=== PATIENT | male | born 1995 | race Asian ===

== ENCOUNTER 2020-06-12 13:19 | Emergency (ER) | payer SELFPAY ==
[2020-06-12] MEDS ORDERED: ONDANSETRON 4 MG/2 ML INJ IV ONE (14:16)
[2020-06-12] MEDS ORDERED: HYDROmorphone 1 MG/1 ML INJ IV ONE (14:16)
[2020-06-12] MEDS ORDERED: SODIUM CHLORIDE 0.9% 1000 ML 1,000 ML IV ONE (14:16)
--- NOTE | 2020-06-12 14:17 | Emergency Department Report ---
ED Abdominal Pain HPI - General Chief Complaint: Abdominal Pain Stated Complaint: ABDOMINAL PAIN PUI?: No Time Seen by Provider: 06/12/20 14:12 Source: patient, EMS ( EMS documentation not available at time of chart dicta tion ), RN notes reviewed Mode of arrival: Stretcher Limitations: No Limitations - History of Present Illness Initial Comments: The patient was evaluated in the emergency department for symptoms described in the history of present illness. He/she was evaluated in the context of the global COVID-19 pandemic, which necessitated consideration that the patient might be at risk for infection with the virus that causes COVID-19. Institutional protocols and algorithms that pertain to the evaluation of patient s at risk for COVID-19 are in a state of rapid change based on information released by regulatory bodies including the CDC and federal and state organizations. These policies and algorithms were followed during the patient's care in the emergency department. Please note that these policies, procedures and recommendations changed on a rapid basis. During the entire history and physical examination, I am chaperoned/escorted by nurse CARMEN,JANUARY Patient is a 24-year-old gentleman, who is not known to myself previously, who recreationally consumes cannabis, denies past medical history otherwise, surgical history otherwise, presenting to the ER with crampy suprapubic and bilateral lower quadrant abdominal pain, present since yesterday. It does not radiate anywhere. Positive nausea and vomiting. No testicular pain, or urinary symptoms. Positive relief with exposure to hot water, hot bath and hot shower. He states he has had pain like this in the past, but not this severe. No additional injuries. No additional complaints. The pain does not radiate anywhere. It is constant. It increases with palpation. It decreases with rest and position. MD Complaint: abdominal pain -: Gradual Location: LLQ, RLQ, suprapubic Radiation: none Migration to: periumbilical Severity: moderate Quality: cramping, aching Consistency: constant Improves With: rest Worsens With: movement Associated Symptoms: nausea, vomiting - Related Data Previous Rx's Medication Instructions Recorded Last Taken Type Acetaminophen [Non-Aspirin Extra 500 mg PO Q6HR PRN #30 tablet 06/12/20 Unknown Rx Strength] Famotidine [Pepcid] 20 mg PO BID #60 tablet 06/12/20 Unknown Rx Kassidy Root [Kassidy] 250 mg PO QID PRN #30 capsule 06/12/20 Unknown Rx Metoclopramide [Reglan] 10 mg PO QID PRN #30 tablet 06/12/20 Unknown Rx Allergies Allergy/AdvReac Type Severity Reaction Status Date / Time No Known Allergies Allergy Unverified 06/12/20 14:27 ED Review of Systems ROS: Stated complaint: ABDOMINAL PAIN Other details as noted in HPI Constitutional: denies: fever Eyes: denies: eye discharge ENT: denies: epistaxis Respiratory: denies: wheezing Cardiovascular: denies: chest pain, syncope Gastrointestinal: abdominal pain, nausea, vomiting. denies: diarrhea, constipation, hematemesis, hematochezia Genitourinary: denies: urgency, dysuria, frequency, testicular pain Musculoskeletal: denies: back pain Neurological: denies: weakness Psychiatric: anxiety Hematological/Lymphatic: denies: easy bleeding ED Past Medical Hx - Past Medical History Previous Medical History?: No - Surgical History Past Surgical History?: No - Social History Smoking Status: Current Every Day Smoker Substance Use Type: None - Medications Home Medications: Home Medications Medication Instructions Recorded Confirmed Last Taken Type Acetaminophen [Non-Aspirin Extra 500 mg PO Q6HR PRN #30 tablet 06/12/20 Unknown Rx Strength] Famotidine [Pepcid] 20 mg PO BID #60 tablet 06/12/20 Unknown Rx Kassidy Root [Kassidy] 250 mg PO QID PRN #30 capsule 06/12/20 Unknown Rx Metoclopramide [Reglan] 10 mg PO QID PRN #30 tablet 06/12/20 Unknown Rx ED Physical Exam - General Limitations: No Limitations General appearance: alert, anxious, in distress - Head Head exam: Present: atraumatic, normocephalic - Eye Eye exam: Present: normal appearance, EOMI. Absent: nystagmus - ENT ENT exam: Present: normal exam, normal orophraynx, mucous membranes moist, normal external ear exam - Neck Neck exam: Present: normal inspection, full ROM. Absent: tenderness, meningismus - Respiratory Respiratory exam: Present: normal lung sounds bilaterally. Absent: respiratory distress - Cardiovascular Cardiovascular Exam: Present: normal rhythm, tachycardia, normal heart sounds. Absent: systolic murmur, diastolic murmur, rubs, gallop - GI/Abdominal GI/Abdominal exam: Present: soft, tenderness, normal bowel sounds, other (Mild bilateral lower abdominal tenderness, without rebound, guarding or peritoneal sign). Absent: distended, guarding, rebound, rigid, pulsatile mass - Rectal Rectal exam: Present: deferred - exam: Present: normal inspection, other (There is normal testicular lie. There is normal cremasteric reflex. There is no testicular tenderness. There is no testicular swelling. Chaperoned by nurse CARMEN,JANUARY). Absent: testicular tenderness External exam: Present: normal external exam - Extremities Exam Extremities exam: Present: normal inspection, full ROM, other (2+ pulses noted in the bilateral upper and lower extremities. There is no palpable cord. negative Homans sign. Muscular compartments are soft. The pelvis is stable.). Absent: pedal edema, calf tenderness - Back Exam Back exam: Present: normal inspection. Absent: tenderness, CVA tenderness (R), CVA tenderness (L), paraspinal tenderness, vertebral tenderness - Neurological Exam Neurological exam: Present: alert, other (No facial droop. Tongue midline. Extraocular movements intact bilaterally. Facial sensation intact to light touch in V1, V2, V3 distribution bilaterally. 5 and a 5 strength in 4 extremities. Sensation intact to light touch in 4 extremities.) - Psychiatric Psychiatric exam: Present: anxious - Skin Skin exam: Present: warm, dry, intact, normal color. Absent: rash ED Course Vital Signs 06/12/20 06/12/20 06/12/20 14:00 14:25 14:48 Temperature 98.8 F Pulse Rate 107 H 83 Respiratory 18 18 19 Rate Blood Pressure 143/93 Blood Pressure 147/96 [Left] O2 Sat by Pulse 100 100 98 Oximetry 06/12/20 06/12/20 06/12/20 15:00 15:15 15:30 Temperature Pulse Rate 81 81 83 Respiratory 13 14 21 Rate Blood Pressure 147/96 126/81 126/81 Blood Pressure [Left] O2 Sat by Pulse 93 96 99 Oximetry 06/12/20 06/12/20 06/12/20 15:45 16:00 16:15 Temperature Pulse Rate 82 82 87 Respiratory 18 16 13 Rate Blood Pressure 121/84 112/78 116/88 Blood Pressure [Left] O2 Sat by Pulse 94 95 98 Oximetry 06/12/20 06/12/20 16:30 16:47 Temperature Pulse Rate 98 H Respiratory 13 Rate Blood Pressure 132/99 132/99 Blood Pressure [Left] O2 Sat by Pulse 98 100 Oximetry - Reevaluation(s) Reevaluation #1: 06/12/20 15:02 Differential diagnosis, including but not limited to: Appendicitis, colitis, diverticulitis, renal colic, cannabinoid hyperemesis syndrome Assessment and plan: 24-year-old gentleman with acute lower abdominal pain, states he has had this pain in the past, but not this severe or intense. It also improves with exposure to hot bath and hot shower. We will treat his pain aggressively, obtain appropriate laboratory studies, urinalysis, obtain CT scan of the abdomen pelvis, and reassess. The patient is clinically sober at this time. Discussed plan of care with the patient, who verbalized understanding, and who is amenable to this plan of care. Reevaluation #2: 06/12/20 17:34 Patient reassessed multiple times. Belly soft on repeat exam. He appears to be much more comfortable. No active vomiting. CT scan negative for acute pathology. Laboratory studies reviewed and appreciated. Leukocytosis is likely a stress reaction. Decreased CO2/anion gap likely secondary to nausea and vomiting, likely leading to dehydration, and bicarbonate losses from GI nausea/vomiting. I highly suspect cannabinoid hyperemesis syndrome at this time. Patient will be discharged with nonnarcotic pain medication, nausea medication, instructions to discontinue cannabis consumption. ED Medical Decision Making - Lab Data Result diagrams: 06/12/20 14:23 06/12/20 14:23 Vital Signs 06/12/20 06/12/20 06/12/20 14:00 14:25 14:48 Temperature 98.8 F Pulse Rate 107 H 83 Respiratory 18 18 19 Rate Blood Pressure 143/93 Blood Pressure 147/96 [Left] O2 Sat by Pulse 100 100 98 Oximetry Lab Results 06/12/20 06/12/20 Range/Units 14:23 14:23 WBC 13.2 H (4.5-11.0) K/mm3 RBC 5.38 H (3.65-5.03) M/mm3 Hgb 17.3 H (11.8-15.2) gm/dl Hct 50.4 H (35.5-45.6) % MCV 94 (84-94) fl MCH 32 (28-32) pg MCHC 34 (32-34) % RDW 12.9 L (13.2-15.2) % Plt Count 312 (140-440) K/mm3 Lymph % (Auto) 7.9 L (13.4-35.0) % Wise % (Auto) 6.8 (0.0-7.3) % Eos % (Auto) 0.0 (0.0-4.3) % Baso % (Auto) 0.4 (0.0-1.8) % Lymph # 1.0 L (1.2-5.4) K/mm3 Wise # 0.9 H (0.0-0.8) K/mm3 Eos # 0.0 (0.0-0.4) K/mm3 Baso # 0.1 (0.0-0.1) K/mm3 Seg Neutrophils % 84.9 H (40.0-70.0) % Seg Neutrophils # 11.2 H (1.8-7.7) K/mm3 PT 13.5 (12.2-14.9) Sec. INR 1.02 (0.87-1.13) Vital Signs 06/12/20 06/12/20 06/12/20 14:00 14:25 14:48 Temperature 98.8 F Pulse Rate 107 H 83 Respiratory 18 18 19 Rate Blood Pressure 143/93 Blood Pressure 147/96 [Left] O2 Sat by Pulse 100 100 98 Oximetry 06/12/20 06/12/20 06/12/20 15:00 15:15 15:30 Temperature Pulse Rate 81 81 83 Respiratory 13 14 21 Rate Blood Pressure 147/96 126/81 126/81 Blood Pressure [Left] O2 Sat by Pulse 93 96 99 Oximetry 06/12/20 06/12/20 06/12/20 15:45 16:00 16:15 Temperature Pulse Rate 82 82 87 Respiratory 18 16 13 Rate Blood Pressure 121/84 112/78 116/88 Blood Pressure [Left] O2 Sat by Pulse 94 95 98 Oximetry 06/12/20 06/12/20 16:30 16:47 Temperature Pulse Rate 98 H Respiratory 13 Rate Blood Pressure 132/99 132/99 Blood Pressure [Left] O2 Sat by Pulse 98 100 Oximetry Lab Results 06/12/20 06/12/20 06/12/20 Range/Units 14:23 14:23 14:23 WBC 13.2 H (4.5-11.0) K/mm3 RBC 5.38 H (3.65-5.03) M/mm3 Hgb 17.3 H (11.8-15.2) gm/dl Hct 50.4 H (35.5-45.6) % MCV 94 (84-94) fl MCH 32 (28-32) pg MCHC 34 (32-34) % RDW 12.9 L (13.2-15.2) % Plt Count 312 (140-440) K/mm3 Lymph % (Auto) 7.9 L (13.4-35.0) % Wise % (Auto) 6.8 (0.0-7.3) % Eos % (Auto) 0.0 (0.0-4.3) % Baso % (Auto) 0.4 (0.0-1.8) % Lymph # 1.0 L (1.2-5.4) K/mm3 Wise # 0.9 H (0.0-0.8) K/mm3 Eos # 0.0 (0.0-0.4) K/mm3 Baso # 0.1 (0.0-0.1) K/mm3 Seg Neutrophils % 84.9 H (40.0-70.0) % Seg Neutrophils # 11.2 H (1.8-7.7) K/mm3 PT 13.5 (12.2-14.9) Sec. INR 1.02 (0.87-1.13) Sodium 141 (137-145) mmol/L Potassium 3.9 (3.6-5.0) mmol/L Chloride 100.7 (98-107) mmol/L Carbon Dioxide 18 L (22-30) mmol/L Anion Gap 26 mmol/L BUN 17 (9-20) mg/dL Creatinine 1.3 (0.8-1.3) mg/dL Estimated GFR > 60 ml/min BUN/Creatinine Ratio 13 % Glucose 93 (75-100) mg/dL Calcium 10.6 H (8.4-10.2) mg/dL Magnesium (1.7-2.3) mg/dL Total Bilirubin 1.10 (0.1-1.2) mg/dL Direct Bilirubin 0.3 H (0-0.2) mg/dL Indirect Bilirubin 0.8 mg/dL AST 25 (5-40) units/L ALT 29 (7-56) units/L Alkaline Phosphatase 79 (35-129) units/L Total Creatine Kinase (55-170) units/L Total Protein 9.0 H (6.3-8.2) g/dL Albumin 4.9 (3.9-5) g/dL Albumin/Globulin Ratio 1.2 % Lipase 18 (13-60) units/L /07/22 Range/Units 14:23 WBC (4.5-11.0) K/mm3 RBC (3.65-5.03) M/mm3 Hgb (11.8-15.2) gm/dl Hct (35.5-45.6) % MCV (84-94) fl MCH (28-32) pg MCHC (32-34) % RDW (13.2-15.2) % Plt Count (140-440) K/mm3 Lymph % (Auto) (13.4-35.0) % Wise % (Auto) (0.0-7.3) % Eos % (Auto) (0.0-4.3) % Baso % (Auto) (0.0-1.8) % Lymph # (1.2-5.4) K/mm3 Wise # (0.0-0.8) K/mm3 Eos # (0.0-0.4) K/mm3 Baso # (0.0-0.1) K/mm3 Seg Neutrophils % (40.0-70.0) % Seg Neutrophils # (1.8-7.7) K/mm3 PT (12.2-14.9) Sec. INR (0.87-1.13) Sodium (137-145) mmol/L Potassium (3.6-5.0) mmol/L Chloride (98-107) mmol/L Carbon Dioxide (22-30) mmol/L Anion Gap mmol/L BUN (9-20) mg/dL Creatinine (0.8-1.3) mg/dL Estimated GFR ml/min BUN/Creatinine Ratio % Glucose (75-100) mg/dL Calcium (8.4-10.2) mg/dL Magnesium 1.70 (1.7-2.3) mg/dL Total Bilirubin (0.1-1.2) mg/dL Direct Bilirubin (0-0.2) mg/dL Indirect Bilirubin mg/dL AST (5-40) units/L ALT (7-56) units/L Alkaline Phosphatase (35-129) units/L Total Creatine Kinase 143 (55-170) units/L Total Protein (6.3-8.2) g/dL Albumin (3.9-5) g/dL Albumin/Globulin Ratio % Lipase (13-60) units/L - Radiology Data Radiology results: pending, report reviewed, image reviewed Print Report Referring Physician: NANCY MEEKS Patient Name: MICAH WAGONER Date of : 1995 Sex: Male Report Date: 2020-06-12 Report Status: Finalized Findings [facility] [address] [place] [address] Cat Scan Report Signed Patient: MICAH WAGONER MR#: [id number] : 1995 Acct:[id number] Age/Sex: 24 / M ADM Date: 06/12/20 Loc: ED Attending Dr: Ordering Physician: NANCY MEEKS MD Date of Service: 06/12/20 Procedure(s): CT abdomen pelvis w con Accession Number(s): [id number] cc: NANCY MEEKS MD CT ABDOMEN AND PELVIS WITH IV CONTRAST INDICATION: acute lower abd pain. COMPARISON: None available. TECHNIQUE: All CT scans at this facility use dose modulation, automated exposure control, iterative reconstruction or weight based dosing, when appropriate, to reduce radiation dose to as low as reasonably achievable. FINDINGS: Lung Bases: There are couple punctate nodular densities in the included right lower lung which are of doubtful clinical significance given the patient's age. Skeletal System: No acute abnormality. ABDOMEN: Liver: No significant abnormality. Gallbladder: No significant abnormality. Bile Ducts: No significant abnormality. Pancreas: No significant abnormality. Spleen: No significant abnormality. Adrenals: No significant abnormality. Right Kidney: No significant abnormality. Left Kidney: No significant abnormality. Upper GI tract: No significant abnormality. Lymph Nodes: No significant adenopathy. Aorta: No significant abnormality. Additional Findings: No significant abnormality. PELVIS: Colon: No acute abnormality. Urinary Bladder and Distal Ureters: No significant abnormality. Appendix: No significant abnormality. Lymph Nodes: No significant adenopathy. Additional Findings: None. IMPRESSION: 1. No acute process in the abdomen or pelvis. 2. Incidental findings, as above. Signer Name: Rj Baird MD Signed: 06/12/2020 5:05 PM Workstation Name: [id number] Transcribed By: LEIDA Dictated By: Rj Baird MD Electronically Authenticated By: Rj Baird MD Signed Date/Time: 06/12/20 4118 Critical care attestation.: If time is entered above; I have spent that time in minutes in the direct care of this critically ill patient, excluding procedure time. ED Disposition Clinical Impression: Acute abdominal pain, History of marijuana use Nausea and vomiting Qualifiers: Vomiting type: unspecified Vomiting Intractability: non-intractable Qualified Code(s): R11.2 - Nausea with vomiting, unspecified Disposition: DC-01 TO HOME OR SELFCARE Is pt being admited?: No Does the pt Need Aspirin: No Condition: Stable Additional Instructions: Advance diet as tolerated. Avoid consumption of Motrin, ibuprofen, Naprosyn, Aleve, heavy and spicy foods. Drink plenty of water and liquids, and avoid consumption of alcohol, cannabis and marijuana. Highly suspect that cannabis is the leading contributing factor to patient's initial symptoms. Do not take metformin medication for the next 2 days, if patient takes this medication. Follow-up with your primary care doctor within the next 5 to 7 days. Take the pain medication, nausea medication as needed and directed. Patient may also take a hot bath/hot shower at home as often as as needed if he develops symptoms, and patient may purchase [id number] hot sauce, such as Tabasco (the particular brand is not important, only that it is hot sauce), and rubs/apply the hot sauce over the abdominal wall if he develops symptoms again. Please return to the emergency room right away with new pain, worsening pain, migration of pain, rectal vomiting, change in mental status, confusion, inabi lity to tolerate liquid feeds, new, worsened or different symptoms not present on the initial emergency room evaluation. Referrals: [facility] [Provider Group] - 3-5 Days [facility] [Provider Group] - 3-5 Days
[2020-06-12 15:01] LABS: Basophils # (Auto) 0.1 K/mm3 (0.0-0.1); Basophils % (Auto) 0.4 % (0.0-1.8); Hematocrit 50.4 % (35.5-45.6); Hemoglobin 17.3 gm/dl (11.8-15.2); Lymphocytes % (Auto) 7.9 % (13.4-35.0); Mean Corpuscular HGB Conc 34 % (32-34); Mean Corpuscular Volume 94 fl (84-94); Monocytes # (Auto) 0.9 K/mm3 (0.0-0.8); Monocytes % (Auto) 6.8 % (0.0-7.3); Platelet Count 312 K/mm3 (140-440); Red Blood Count 5.38 M/mm3 (3.65-5.03); Red Cell Distribution Width 12.9 % (13.2-15.2)
[2020-06-12 15:16] LABS: INR 1.02 (0.87-1.13)
[2020-06-12 16:18] LABS: Alanine Aminotransferase 29 units/L (7-56); Albumin 4.9 g/dL (3.9-5); BUN/Creatinine Ratio 13; Bilirubin,Direct 0.3 mg/dL (0-0.2); Blood Urea Nitrogen 17 mg/dL (9-20); Calcium 10.6 mg/dL (8.4-10.2); Hemolysis Index 11
[2020-06-12] MEDS ORDERED: SODIUM CHLORIDE 0.9% 1000 ML 2,000 ML IV ONE (16:21)
--- NOTE | 2020-06-12 17:09 | Cat Scan Report ---
CT ABDOMEN AND PELVIS WITH IV CONTRAST INDICATION: acute lower abd pain. COMPARISON: None available. TECHNIQUE: All CT scans at this facility use dose modulation, automated exposure control, iterative reconstructi on or weight based dosing, when appropriate, to reduce radiation dose to as low as reasonably achieva ble. FINDINGS: Lung Bases: There are couple punctate nodular densities in the included right lower lung which are of doubtful clinical significance given the patient's age. Skeletal System: No acute abnormality. ABDOMEN: Liver: No significant abnormality. Gallbladder: No significant abnormality. Bile Ducts: No significant abnormality. Pancreas: No significant abnormality. Spleen: No significant abnormality. Adrenals: No significant abnormality. Right Kidney: No significant abnormality. Left Kidney: No significant abnormality. Upper GI tract: No significant abnormality. Lymph Nodes: No significant adenopathy. Aorta: No significant abnormality. Additional Findings: No significant abnormality. PELVIS: Colon: No acute abnormality. Urinary Bladder and Distal Ureters: No significant abnormality. Appendix: No significant abnormality. Lymph Nodes: No significant adenopathy. Additional Findings: None. IMPRESSION: 1. No acute process in the abdomen or pelvis. 2. Incidental findings, as above. Signer Name: Rj Baird MD Signed: 06/12/2020 5:05 PM Workstation Name: [id number]
[2020-06-12 18:03] LABS: Bilirubin,Urine NEG (Negative); Blood,Urine NEG (Negative); Color,Urine Amber (Yellow); Mucus,Urine 3+ /HPF
[2020-06-12 18:32] VITALS: BP 138/76
== END 2020-06-12 18:31 | disposition home or self-care (01) ==
LOC: ED 13:19
DX: R10.31 Right lower quadrant pain (principal); R10.32 Left lower quadrant pain; R11.2 Nausea with vomiting, unspecified; F12.10 Cannabis abuse, uncomplicated; F17.200 Nicotine dependence, unspecified, uncomplicated; Z79.899 Other long term (current) drug therapy
CPT/HCPCS: 36415; 74177; 80048; 80076; 81001; 82550; 83690; 83735; 85025; 85610; 96361; 96374; 99284; J1170; J2405; J7030; Q9967